=== PATIENT | female | born 1950 | race Caucasian/White ===

== ENCOUNTER 2019-03-19 19:17 | Observation (INO) | payer BC ==
[~2019-03-19] VITALS: Ht 157.5 cm; Wt 65.6 kg
[~2019-03-19 19:17] MED LIST: ACET-93 PO; CHLO4TAB36 PO; EZET10TA5 PO; LISI-552 PO; MG T1TAB2 PO; MULT1TAB69 PO
[2019-03-19] MEDS ORDERED: fentaNYL INJECTION 100 MCG/2 ML AMP ONE (19:26)
[2019-03-19] MEDS ORDERED: NS IV 1000 ML 1,000 ML ONE (19:26)
[2019-03-19] MEDS ORDERED: ONDANSETRON 4 MG/2 ML (SDV) Z0FRAN ONE (19:26)
--- NOTE | 2019-03-19 19:34 | ED Abdominal Pain ---
General Chief Complaint: Abdominal/GI Problems Stated Complaint: ABD PAIN Nursing Triage Note: PT TO ED PER W/C W/ C/O UPPER ABD PAIN ONSET 0830 THIS AM. REPORTS HAD TO "FORCE" A BM DENIES IMPROVEMENT. DENIES PASSING GAS TODAY. NO OTHER C/O VOICED Sepsis Screen: No Definite Risk Source of Information: Patient Exam Limitations: No Limitations History of Present Illness Date Seen by Provider: Mar 19, 2019 Time Seen by Provider: 19:32 Initial Comments To ER by private vehicle from home with reports of right upper abdominal pain that began this morning at about 8:30 while she was outside checking her animals. This is a crampy pain, she thought she needed to have diarrhea after this began. She forced a bowel movement but has not since passed any gas or had anymore bowel movements. She has had nausea but no vomiting, her only abdominal surgical history is a partial hysterectomy. She did have recent angioplasty to the left lower extremity at [facility] about one week ago. She reports that her left leg is feeling much better overall Timing/Duration: 1-2 Days Severity/Quality: Moderate, Cramping Location: RUQ, Epigastric Radiation: No Radiation Activities at Onset: None Associated Symptoms: Nausea/Vomiting (yes at this time) Allergies and Home Medications Allergies Coded Allergies: aspirin (Unverified Allergy, Unknown, 03/19/19) ciprofloxacin (Unverified Allergy, Unknown, 03/19/19) sulfamethoxazole (Verified Allergy, Unknown, 03/19/19) trimethoprim (Verified Allergy, Unknown, 03/19/19) Home Medications Acetaminophen 500 Mg Tablet, 1,000 MG PO DAILY PRN for PAIN, (Reported) Al Hydrox/mg Trisilicate 1 Tab.chew Tab.chew, 1 TAB.CHEW PO DAILY PRN for INDIGESTION, (Reported) Chlorpheniramine Maleate 4 Mg Tablet, 4 MG PO DAILY PRN for ALLERGIES, (Reported) Ezetimibe 10 Mg Tablet, 10 MG PO HS, (Reported) Lisinopril 20 Mg Tablet, 20 MG PO HS, (Reported) Multivitamin 1 Each Tablet, 1 TAB PO DAILY, (Reported) Patient Home Medication List Home Medication List Reviewed: Yes Review of Systems Review of Systems Constitutional: see HPI EENTM: No Symptoms Reported Respiratory: No Symptoms Reported Cardiovascular: No Symptoms Reported Gastrointestinal: See HPI, Abdominal Pain, Nausea Genitourinary: No Symptoms Reported Musculoskeletal: no symptoms reported Skin: no symptoms reported Psychiatric/Neurological: No Symptoms Reported Endocrine: No Symptoms Reported Hematologic/Lymphatic: No Symptoms Reported Past Dvpxopt-Gygvxk-Fyfvoe Hx Patient Social History Alcohol Use: Denies Use Recreational Drug Use: No Smoking Status: Never a Smoker Recent Foreign Travel: No Contact w/Someone Who Travel: No Recent Infectious Disease Expo: No Recent Hopitalizations: Yes ([facility] AT [facility] IN ,[place]) Past Medical History Surgeries: Yes Hysterectomy Respiratory: Yes (ASTHMA A CHILD) Asthma Cardiac: Yes Neurological: No Genitourinary: No Gastrointestinal: Yes Gastroesophageal Reflux Musculoskeletal: No Endocrine: No HEENT: No Cancer: No Psychosocial: No Integumentary: No Physical Exam Vital Signs Vital Signs - First Documented 03/19/19 19:22 Temp 37.9 Pulse 82 Resp 18 B/P (MAP) 163/78 (106) Pulse Ox 97 O2 Delivery Room Air Capillary Refill : Less Than 3 Seconds Height/Weight/BMI Height: 5'2.00" Weight: 140lbs. 0.0oz. [id number]; 26.00 BMI Method: General Appearance: WD/WN, no apparent distress Respiratory: no respiratory distress, no accessory muscle use Cardiovascular: regular rate, rhythm, no murmur Gastrointestinal: normal bowel sounds, soft, tenderness Extremities: normal range of motion, non-tender Neurologic/Psychiatric: alert, normal mood/affect, oriented x 3 Skin: normal color, warm/dry Progress/Results/Core Measures Results/Orders Lab Results Laboratory Tests Test 03/19/19 19:26 03/19/19 20:30 Range/Units White Blood Count 8.2 4.3-11.0 10^3/uL Red Blood Count 4.49 4.35-5.85 10^6/uL Hemoglobin 13.6 11.5-16.0 G/DL Hematocrit 41 35-52 % Mean Corpuscular Volume 91 80-99 FL Mean Corpuscular Hemoglobin 30 25-34 PG Mean Corpuscular Hemoglobin Concent 33 32-36 G/DL Red Cell Distribution Width 12.2 10.0-14.5 % Platelet Count 258 130-400 10^3/uL Mean Platelet Volume 10.2 7.4-10.4 FL Neutrophils (%) (Auto) 70 42-75 % Lymphocytes (%) (Auto) 19 12-44 % Monocytes (%) (Auto) 7 0-12 % Eosinophils (%) (Auto) 5 0-10 % Basophils (%) (Auto) 0 0-10 % Neutrophils # (Auto) 5.7 1.8-7.8 X 10^3 Lymphocytes # (Auto) 1.5 1.0-4.0 X 10^3 Monocytes # (Auto) 0.5 0.0-1.0 X 10^3 Eosinophils # (Auto) 0.4 H 0.0-0.3 10^3/uL Basophils # (Auto) 0.0 0.0-0.1 10^3/uL Sodium Level 142 135-145 MMOL/L Potassium Level 3.9 3.6-5.0 MMOL/L Chloride Level 104 98-107 MMOL/L Carbon Dioxide Level 28 21-32 MMOL/L Anion Gap 10 5-14 MMOL/L Blood Urea Nitrogen 11 7-18 MG/DL Creatinine 0.81 0.60-1.30 MG/DL Estimat Glomerular Filtration Rate > 60 BUN/Creatinine Ratio 14 Glucose Level 109 H 70-105 MG/DL Calcium Level 9.9 8.5-10.1 MG/DL Corrected Calcium 9.5 8.5-10.1 MG/DL Total Bilirubin 0.4 0.1-1.0 MG/DL Aspartate Amino Transf (AST/SGOT) 16 5-34 U/L Alanine Aminotransferase (ALT/SGPT) 14 0-55 U/L Alkaline Phosphatase 90 40-136 U/L Total Protein 7.5 6.4-8.2 GM/DL Albumin 4.5 3.2-4.5 GM/DL Lipase 34 8-78 U/L Urine Color YELLOW Urine Clarity CLEAR Urine pH 7 5-9 Urine Specific [place] 1.010 L 1.016-1.022 Urine Protein NEGATIVE NEGATIVE Urine Glucose (UA) NEGATIVE NEGATIVE Urine Ketones NEGATIVE NEGATIVE Urine Nitrite NEGATIVE NEGATIVE Urine Bilirubin NEGATIVE NEGATIVE Urine Urobilinogen NORMAL NORMAL MG/DL Urine Leukocyte Esterase NEGATIVE NEGATIVE Urine RBC (Auto) NEGATIVE NEGATIVE Urine RBC RARE /HPF Urine WBC 0-2 /HPF Urine Squamous Epithelial Cells RARE /HPF Urine Crystals NONE /LPF Urine Bacteria NEGATIVE /HPF Urine Casts NONE /LPF Urine Mucus NEGATIVE /LPF Urine Culture Indicated NO My Orders Orders - TONYA BA APRN Fentanyl Injection (Sublimaze Injection (03/19/19 19:26) Ondansetron Injection (Zofran Injectio (03/19/19 19:26) Ns Iv 1000 Ml (Sodium Chloride 0.9%) (03/19/19 19:26) Cbc With Automated Diff (03/19/19 19:31) Comprehensive Metabolic Panel (03/19/19 19:31) Lipase (03/19/19 19:31) Ua Culture If Indicated (03/19/19 19:31) Ed Iv/Invasive Line Start (03/19/19 19:31) Ct Abd/Pelv W (Appendicitis) (03/19/19 19:31) Ondansetron Injection (Zofran Injectio (03/19/19 19:45) Fentanyl Injection (Sublimaze Injection (03/19/19 19:45) Promethazine Injection (Phenergan Injec (03/19/19 20:15) Iohexol Injection (Omnipaque 350 Mg/Ml 1 (03/19/19 20:15) Received Contrast (Hold Metformin- Contr (03/19/19 20:15) Sodium Chloride Flush (Catheter Flush Sy (03/19/19 20:15) Ns (Ivpb) (Sodium Chloride 0.9% Ivpb Bag (03/19/19 20:15) Lactic Acid Analyzer (03/19/19 20:56) Medications Given in ED Current Medications Medications Dose Ordered Sig/Nando Route Start Time Stop Time Status Last Admin Dose Admin Fentanyl Citrate 50 mcg ONCE ONCE IVP 03/19/19 19:45 03/19/19 19:46 DC 03/19/19 19:34 50 MCG Iohexol 100 ml ONCE ONCE IV 03/19/19 20:15 03/19/19 20:16 DC 03/19/19 20:24 83 ML Ondansetron HCl 8 mg ONCE ONCE IVP 03/19/19 19:45 03/19/19 19:46 DC 03/19/19 19:33 8 MG Promethazine HCl 12.5 mg ONCE ONCE IVP 03/19/19 20:15 03/19/19 20:16 DC 03/19/19 20:11 12.5 MG Sodium Chloride 10 ml NEEDED PRN IV 03/19/19 20:15 03/19/19 20:24 10 ML Sodium Chloride 100 ml ONCE ONCE IV 03/19/19 20:15 03/19/19 20:16 DC 03/19/19 20:24 80 ML [facility] 03/19/19 19:26 03/19/19 19:28 DC 03/19/19 19:33 1,000 MLS/HR Vital Signs/I&O 03/19/19 19:22 Temp 37.9 Pulse 82 Resp 18 B/P (MAP) 163/78 (106) Pulse Ox 97 O2 Delivery Room Air Blood Pressure Mean: 106 Departure Communication (Admissions) Time/Spoke to Admitting Phy: 21:[address] Ramos, agrees with observation, patient and are agreeable with this. Then spoke with Dr. Garcia who also agrees. At this time, 2101 she is completely pain free and nausea free, however given her vascular pathology possibility of mesenteric ischemia exists and warrants observation though it is unlikely given the complete resolution of pain with one dose of fentanyl. Impression Primary Impression: Ileitis Disposition: ADMITTED INPATIENT Condition: Stable Admissions Decision to Admit Reason: Admit from ER (General) Decision to Admit/Date: Mar 19, 2019 Time/Decision to Admit Time: 21:00 Departure-Patient Inst. Referrals: NO,LOCAL PHYSICIAN (PCP/Family) Primary Care Physician TONYA BA APRN Mar 19, 2019 19:34
[2019-03-19 19:38] LABS: BASOPHILS % (AUTO) 0 % (0-10); EOSINOPHILS # (AUTO) 0.4 10^3/uL (0.0-0.3); EOSINOPHILS % (AUTO) 5 % (0-10); HEMATOCRIT 41 % (35-52); HEMOGLOBIN 13.6 G/DL (11.5-16.0); LYMPHOCYTES # (AUTO) 1.5 X 10^3 (1.0-4.0); LYMPHOCYTES % (AUTO) 19 % (12-44); MEAN CORPUSCULAR HEMOGLOBIN 30 PG (25-34); MEAN CORPUSCULAR HGB CONC 33 G/DL (32-36); MEAN CORPUSCULAR VOLUME 91 FL (80-99); MEAN PLATELET VOLUME 10.2 FL (7.4-10.4); MONOCYTES # (AUTO) 0.5 X 10^3 (0.0-1.0); MONOCYTES % (AUTO) 7 % (0-12); NEUTROPHILS # (AUTO) 5.7 X 10^3 (1.8-7.8); NEUTROPHILS % (AUTO) 70 % (42-75); PLATELET COUNT 258 10^3/uL (130-400); RED CELL DISTRIBUTION WIDTH 12.2 % (10.0-14.5); WHITE BLOOD COUNT 8.2 10^3/uL (4.3-11.0)
[2019-03-19] MEDS ORDERED: fentaNYL INJECTION 100 MCG/2 ML AMP IVP ONE (19:45)
[2019-03-19] MEDS ORDERED: ONDANSETRON 4 MG/2 ML (SDV) Z0FRAN IVP ONE (19:45)
[2019-03-19 20:06] LABS: ALANINE AMINOTRANSFERASE 14 U/L (0-55); ALBUMIN 4.5 GM/DL (3.2-4.5); ALKALINE PHOSPHATASE 90 U/L (40-136); BILIRUBIN,TOTAL 0.4 MG/DL (0.1-1.0); BUN/CREATININE RATIO 14; CALCIUM 9.9 MG/DL (8.5-10.1); CARBON DIOXIDE 28 MMOL/L (21-32); CREATININE SERUM 0.81 MG/DL (0.60-1.30); GFR ESTIMATED > 60; GLUCOSE 109 MG/DL (70-105); LIPASE 34 U/L (8-78); TOTAL PROTEIN 7.5 GM/DL (6.4-8.2)
[2019-03-19] MEDS ORDERED: PROMETHAZINE INJ 25 MG/ML (PHENERGAN) AMP IVP ONE (20:15)
[2019-03-19] MEDS ORDERED: IOHEXOL 350 MG/ML 100 ML (OMNIPAQUE 350) VIAL IV ONE (20:15)
[2019-03-19] MEDS ORDERED: CATHETER FLUSH 10 ML SYR IV PRN (20:15)
[2019-03-19] MEDS ORDERED: NS 100 ML (IVPB) BAG IV ONE (20:15)
[2019-03-19] MEDS ORDERED: HOLD METFORMIN - RECEIVED CONTRAST 20 ML VIAL IV SCH (20:15)
[2019-03-19 20:38] LABS: BILIRUBIN,URINE NEGATIVE (NEGATIVE); CLARITY,URINE CLEAR; COLOR,URINE YELLOW; GLUCOSE, URINE (UA) NEGATIVE (NEGATIVE); KETONES,URINE NEGATIVE (NEGATIVE); LEUKOCYTE ESTERASE ,URINE NEGATIVE (NEGATIVE); NITRITE,URINE NEGATIVE (NEGATIVE); PH,URINE 7 (5-9); PROTEIN,URINE NEGATIVE (NEGATIVE); UROBILINOGEN,URINE NORMAL (NORMAL)
--- NOTE | 2019-03-19 20:43 | Diagnostic Imaging Report ---
PROCEDURE: CT abdomen and pelvis with contrast, rule out appendicitis. TECHNIQUE: Multiple contiguous axial images were obtained through the abdomen and pelvis after the administration of intravenous contrast. INDICATION: Right lower quadrant pain. COMPARISON: CT abdomen and pelvis of 05/15/2009 FINDINGS: Lower chest: The lung bases are clear. No pericardial or pleural effusion. Peritoneum: No free intraperitoneal air or loculated fluid collection. Small amount of free pelvic fluid is present. Liver and biliary system: The liver is normal. The gallbladder is normal. No biliary duct dilation. Spleen and Pancreas: Spleen is normal. The pancreas enhances normally without mass lesion or peripancreatic inflammatory changes. Adrenals: Normal. tract: The kidneys enhance normally without suspicious mass or obstruction. Urinary bladder is distended without wall thickening. No distal ureteral stone. Hysterectomy. Right adnexal cyst measures 2.3 x 1.9 cm. GI tract: Stomach is decompressed. In the right lower quadrant there is a contiguous segment of small bowel measuring approximately 15 cm in length and has circumferential wall thickening and hyperenhancement of the mucosa. Additionally, there is stranding in the vasa recta, all features indicative of acute enteritis. No pericolonic inflammatory changes. Normal appendix. Vasculature and Lymph nodes: Normal caliber aorta has moderate atherosclerotic plaquing present. No abdominal or pelvic lymphadenopathy. Musculoskeletal: No concerning osseous lesion. Chronic bilateral pars defects. IMPRESSION: 1. Acute enteritis involving the right lower quadrant loop of ileum is most likely due to an infectious process. No obstruction. 2. Normal appendix. 3. Small volume of pelvic ascites is likely secondary to enteritis. Dictated by: Dictated on workstation # [id number]
[2019-03-19 20:46] LABS: BACTERIA,URINE NEGATIVE /HPF; RBC,URINE RARE /HPF; SQUAMOUS EPITHELIAL CELL,UR RARE /HPF; WBC,URINE 0-2 /HPF
[2019-03-19 20:47] LABS: CHLORIDE 104 MMOL/L (98-107); POTASSIUM 3.9 MMOL/L (3.6-5.0); SODIUM 142 MMOL/L (135-145)
--- NOTE | 2019-03-19 21:32 | Consultation - Surgery ---
History of Present Illness History of Present Illness Patient Consulted On(leyla/time) 03/19/19 21:24 Time Seen by Provider: 21:01 History of Present Illness Surgery asked to consult regarding enteritis and RLQ pain. HPI per ED: To ER by private vehicle from home with reports of right upper abdominal pain that began this morning at about 8:30 while she was outside checking her animals. This is a crampy pain, she thought she needed to have diarrhea after this began. She forced a bowel movement but has not since passed any gas or had anymore bowel movements. She has had nausea but no vomiting, her only abdominal surgical history is a partial hysterectomy. She did have recent angioplasty to the left lower extremity at [facility] about one week ago. She reports that her left leg is feeling much better overall Timing/Duration: 1-2 Days Severity/Quality: Moderate, Cramping Location: RUQ, Epigastric Radiation: No Radiation Activities at Onset: None Associated Symptoms: Nausea/Vomiting (yes at this time) When I spoke to pt she stated she has never had pain like this before "nothing this bad, that has lasted this long". She described a sharp stabbing pain that comes and goes; at its worst it was an 8. Pain is gone now because she got Fentanyl. Pt denies any recent illness or anyone in her family with similar symptoms and nothing she has eaten differently. Pain got worse at 2pm and thats when she decided to go to ER. Allergies and Home Medications Allergies Coded Allergies: aspirin (Unverified Allergy, Unknown, 03/19/19) ciprofloxacin (Unverified Allergy, Unknown, 03/19/19) sulfamethoxazole (Verified Allergy, Unknown, 03/19/19) trimethoprim (Verified Allergy, Unknown, 03/19/19) Home Medications Acetaminophen 500 Mg Tablet, 1,000 MG PO DAILY PRN for PAIN, (Reported) Al Hydrox/mg Trisilicate 1 Tab.chew Tab.chew, 1 TAB.CHEW PO DAILY PRN for INDIGESTION, (Reported) Chlorpheniramine Maleate 4 Mg Tablet, 4 MG PO DAILY PRN for ALLERGIES, (Reported) Ezetimibe 10 Mg Tablet, 10 MG PO HS, (Reported) Lisinopril 20 Mg Tablet, 20 MG PO HS, (Reported) Multivitamin 1 Each Tablet, 1 TAB PO DAILY, (Reported) Patient Home Medication List Home Medication List Reviewed: Yes Past Ngngxwp-Cjhljy-Gscqzj Hx Patient Social History Alcohol Use: Denies Use Recreational Drug Use: No Smoking Status: Never a Smoker Recent Foreign Travel: No Contact w/Someone Who Travel: No Recent Infectious Disease Expo: No Recent Hopitalizations: Yes ([facility] AT [facility] [place] ,[place]) Surgeries History of Surgeries: Yes Surgeries: Hysterectomy, Vascular Surgery (stent placement in legs) Respiratory History of Respiratory Disorde: Yes (ASTHMA A CHILD) Respiratory Disorders: Asthma Cardiovascular History of Cardiac Disorders: Yes Neurological History of Neurological Disord: No Genitourinary History of Genitourinary Disor: No Gastrointestinal History of Gastrointestinal Di: Yes Gastrointestinal Disorders: Gastroesophageal Reflux Musculoskeletal History of Musculoskeletal Dis: No Endocrine History of Endocrine Disorders: No HEENT History of HEENT Disorders: No Cancer History of Cancer: No Psychosocial History of Psychiatric Problem: No Integumentary History of Skin or Integumenta: No Family Medical History Significant Family History: CAD Under 55 Years Old (Brother at 50), CAD Over 55 Years Old, Diabetes (brother), Hypertension (mother, father and brother) Review of Systems-General Constitutional: No chills, No diaphoresis; malaise, weakness EENTM: No blurred vision, No double vision, No mouth pain, No mouth swelling, No epistaxis Respiratory: No cough, No dyspnea on exertion, No hemoptysis, No short of breath Cardiovascular: No chest pain, No edema, No palpitations Gastrointestinal: abdominal pain (RLQ); No diarrhea, No heartburn, No jaundice Genitourinary: No dysuria, No frequency, No hematuria Musculoskeletal: No joint pain, No joint swelling, No muscle stiffness, No muscle cramps Skin: No change in color, No change in hair/nails Psychiatric/Neurological: Denies Anxiety, Denies Depressed, Denies Seizure, Denies Tingling Other pt denies any hx of abnormal bleeding or bruising. Physical Exam-General Problems Physical Exam Vital Signs Vital Signs - First Documented 03/19/19 19:22 Temp 37.9 Pulse 82 Resp 18 B/P (MAP) 163/78 (106) Pulse Ox 97 O2 Delivery Room Air Capillary Refill : Less Than 3 Seconds General Appearance: WD/WN, mild distress Eyes: Bilateral Eye PERRL, Bilateral Eye EOMI HEENT: pharynx normal; No scleral icterus (R), No scleral icterus (L) Neck: non-tender, full range of motion, supple, normal inspection Respiratory: chest non-tender, lungs clear, normal breath sounds, no respiratory distress, no accessory muscle use Cardiovascular: regular rate, rhythm, no edema, no murmur Peripheral Pulses: 3+ Dorsalis Pedis (R), 3+ Left Dors-Pedis (L), 3+ Radial Pulses (R), 3+ Radial Pulses (L) Gastrointestinal: normal bowel sounds, soft, no organomegaly; No distended; guarding (involuntary), tenderness (RLQ); No hernia Rectal: deferred Back: no CVA tenderness, no vertebral tenderness Extremities: normal range of motion, no pedal edema, no calf tenderness, normal capillary refill Skin: normal color, warm/dry Lymphatic: no adenopathy (neck, axilla or groin) Data Review Labs Laboratory Tests 03/19/19 19:26: White Blood Count 8.2, Red Blood Count 4.49, Hemoglobin 13.6, Hematocrit 41, Mean Corpuscular Volume 91, Mean Corpuscular Hemoglobin 30, Mean Corpuscular Hemoglobin Concent 33, Red Cell Distribution Width 12.2, Platelet Count 258, Mean Platelet Volume 10.2, Neutrophils (%) (Auto) 70, Lymphocytes (%) (Auto) 19, Monocytes (%) (Auto) 7, Eosinophils (%) (Auto) 5, Basophils (%) (Auto) 0, Neutrophils # (Auto) 5.7, Lymphocytes # (Auto) 1.5, Monocytes # (Auto) 0.5, Eosinophils # (Auto) 0.4H, Basophils # (Auto) 0.0, Sodium Level 142, Potassium Level 3.9, Chloride Level 104, Carbon Dioxide Level 28, Anion Gap 10, Blood Urea Nitrogen 11, Creatinine 0.81, Estimat Glomerular Filtration Rate > 60, BUN/Creatinine Ratio 14, Glucose Level 109H, Calcium Level 9.9, Corrected Calcium 9.5, Total Bilirubin 0.4, Aspartate Amino Transf (AST/SGOT) 16, Alanine Aminotransferase (ALT/SGPT) 14, Alkaline Phosphatase 90, Total Protein 7.5, Albumin 4.5, Lipase 34 03/19/19 20:30: Urine Color YELLOW, Urine Clarity CLEAR, Urine pH 7, Urine Specific [place] 1.010L, Urine Protein NEGATIVE, Urine Glucose (UA) NEGATIVE, Urine Ketones NEGATIVE, Urine Nitrite NEGATIVE, Urine Bilirubin NEGATIVE, Urine Urobilinogen NORMAL, Urine Leukocyte Esterase NEGATIVE, Urine RBC (Auto) NEGATIVE, Urine RBC RARE, Urine WBC 0-2, Urine Squamous Epithelial Cells RARE, Urine Crystals NONE, Urine Bacteria NEGATIVE, Urine Casts NONE, Urine Mucus NEGATIVE, Urine Culture Indicated NO 03/19/19 21:07: Assessment/Plan Assessment/Plan Assessment/Plan RLQ pain Enteritis Pt has abdominal pain that is only better with pain meds and does not really seem to be getting better, WBC is normal but her CT shows dilated/thickened sma ll bowel in the RLQ and fluid in the pelvis. She is being admitted to recheck labs in am and recheck abdominal exam. She will get IV fluids and pain control. Most likely this is viral, but I am concerned it could be vascular and told pt if it is worse tomorrow she may need to have a diagnostic laparoscopy. She was agreeable to this. RAZA RIVERA DO Mar 19, 2019 21:32
--- NOTE | 2019-03-19 21:50 | NUR ---
report given to chloe mcrae
--- NOTE | 2019-03-19 22:10 | NUR ---
SANDI GLOVER admitted to room 422-1, with an admitting diagnosis of ACUTE ILEITIS , on 03/19/19 from ED via , accompanied by STAFF. SANDI GLOVER introduced to surroundings, call light, bed controls, phone, TV, temperature control, lights, meal times, smoking policy, visitor policy, side rail policy, bathrooms and showers. Patient Rights given to patient in the handbook.SANDI GLOVER verbalizes understanding that [facility] is not responsible for the loss or damage to any personal effects or valuables that are kept in the patients posession during their hospitalization.
[2019-03-19] MEDS ORDERED: LACTATED RINGERS 1,000 ML IV ONE (22:15)
[2019-03-19 22:17] VITALS: BP 116/65
[2019-03-19] MEDS: LACTATED RINGERS 1,000 ML IV SCH (22:24)
[2019-03-19] MEDS ORDERED: PROMETHAZINE INJ 25 MG/ML (PHENERGAN) AMP IV PRN (22:30)
[2019-03-19] MEDS ORDERED: fentaNYL INJECTION 100 MCG/2 ML AMP IV PRN (22:30)
[2019-03-20] VITALS (7 sets, daily range): BP systolic 104–148; BP diastolic 54–71
[2019-03-20 05:16] LABS: BASOPHILS % (AUTO) 1 % (0-10); EOSINOPHILS # (AUTO) 0.4 10^3/uL (0.0-0.3); EOSINOPHILS % (AUTO) 6 % (0-10); HEMATOCRIT 36 % (35-52); HEMOGLOBIN 11.6 G/DL (11.5-16.0); LYMPHOCYTES # (AUTO) 1.4 X 10^3 (1.0-4.0); LYMPHOCYTES % (AUTO) 24 % (12-44); MEAN CORPUSCULAR HEMOGLOBIN 30 PG (25-34); MEAN CORPUSCULAR HGB CONC 33 G/DL (32-36); MEAN CORPUSCULAR VOLUME 92 FL (80-99); MEAN PLATELET VOLUME 10.5 FL (7.4-10.4); MONOCYTES # (AUTO) 0.4 X 10^3 (0.0-1.0); MONOCYTES % (AUTO) 8 % (0-12); NEUTROPHILS # (AUTO) 3.6 X 10^3 (1.8-7.8); NEUTROPHILS % (AUTO) 62 % (42-75); PLATELET COUNT 200 10^3/uL (130-400); RED CELL DISTRIBUTION WIDTH 12.3 % (10.0-14.5); WHITE BLOOD COUNT 5.8 10^3/uL (4.3-11.0)
[2019-03-20 05:35] LABS: ALANINE AMINOTRANSFERASE 11 U/L (0-55); ALBUMIN 3.5 GM/DL (3.2-4.5); ALKALINE PHOSPHATASE 74 U/L (40-136); BILIRUBIN,TOTAL 0.4 MG/DL (0.1-1.0); BUN/CREATININE RATIO 14; CALCIUM 8.5 MG/DL (8.5-10.1); CARBON DIOXIDE 25 MMOL/L (21-32); CHLORIDE 109 MMOL/L (98-107); CREATININE SERUM 0.71 MG/DL (0.60-1.30); GFR ESTIMATED > 60; GLUCOSE 88 MG/DL (70-105); POTASSIUM 3.7 MMOL/L (3.6-5.0); SODIUM 141 MMOL/L (135-145); TOTAL PROTEIN 5.7 GM/DL (6.4-8.2)
[2019-03-20] MEDS: LACTATED RINGERS 1,000 ML IV SCH ×3 (06:14→22:50)
[2019-03-20] MEDS: CLOPIDOGREL 75 MG (PLAVIX) TABLET PO SCH (08:01)
--- NOTE | 2019-03-20 10:32 | Progress Note - Surgery ---
FRANCISCO GLEASON,MED STUDENT 03/20/19 1032: Subjective Date Seen by a Provider: Mar 20, 2019 Time Seen by a Provider: 10:15 Subjective/Events-last exam Mrs. Murry presentes to the ED yesterday with severe RLQ pain. The pain became severe yesterday morning and continued to worsen throughout the day. Prior to yesterday she has had soreness in her RLQ for "months". She states today the pain has improved today and she now characterizes it as a "twinge". She has had 2 bouts of pain overnight that she rates a 2 out of 10. she denies any nausea/vomiting. She states diarrhea began last night and she has had 5 bowel movements. She denies any black or bright red blood on her stools. Review of Systems General: No Chills, No Night Sweats, No Fatigue Pulmonary: No Dyspnea, No Cough Cardiovascular: No: Chest Pain Gastrointestinal: Abdominal Pain, Diarrhea; No: Nausea, Vomiting, Constipation, Melena, Hematochezia Genitourinary: No Incontinence, No Retention Neurological: No: Weakness, Confusion Focused Exam Lactate Level 03/19/19 21:07: Lactic Acid Level 0.41L Objective Exam Vital Signs Date Time Temp Pulse Resp B/P (MAP) Pulse Ox O2 Delivery O2 Flow Rate FiO2 03/20/19 08:25 37.0 63 20 114/66 (82) 98 Room Air 03/20/19 08:00 Room Air 03/20/19 04:00 36.6 60 16 117/57 (77) 95 Room Air 03/20/19 00:00 37.0 68 16 115/54 (74) 95 Room Air 03/19/19 22:51 Room Air 03/19/19 22:17 36.5 70 20 116/65 93 Room Air 03/19/19 22:09 68 18 121/63 97 03/19/19 19:22 37.9 82 18 163/78 (106) 97 Room Air I & O 03/20/19 07:00 Intake Total 2050 ml Balance 2050 ml Capillary Refill : Less Than 3 Seconds General Appearance: No Apparent Distress, WD/WN HEENT: PERRL/EOMI Neck: Full Range of Motion, Supple Respiratory: Chest Non Tender, Lungs Clear, Normal Breath Sounds Cardiovascular: Regular Rate, Rhythm, No Murmur Peripheral Pulses: 2+ Radial Pulses (R), 2+ Radial Pulses (L) Gastrointestinal: normal bowel sounds, soft; No distended, No rebound; tenderness (RLQ); No hernia Extremity: No Calf Tenderness, No Pedal Edema Neurologic/Psychiatric: Alert, Oriented x3, Normal Mood/Affect Skin: Normal Color, Warm/Dry Results Lab Laboratory Tests 03/19/19 19:26: White Blood Count 8.2, Red Blood Count 4.49, Hemoglobin 13.6, Hematocrit 41, Mean Corpuscular Volume 91, Mean Corpuscular Hemoglobin 30, Mean Corpuscular Hemoglobin Concent 33, Red Cell Distribution Width 12.2, Platelet Count 258, Mean Platelet Volume 10.2, Neutrophils (%) (Auto) 70, Lymphocytes (%) (Auto) 19, Monocytes (%) (Auto) 7, Eosinophils (%) (Auto) 5, Basophils (%) (Auto) 0, Neutrophils # (Auto) 5.7, Lymphocytes # (Auto) 1.5, Monocytes # (Auto) 0.5, Eosinophils # (Auto) 0.4H, Basophils # (Auto) 0.0, Sodium Level 142, Potassium Level 3.9, Chloride Level 104, Carbon Dioxide Level 28, Anion Gap 10, Blood Urea Nitrogen 11, Creatinine 0.81, Estimat Glomerular Filtration Rate > 60, BUN/Creatinine Ratio 14, Glucose Level 109H, Calcium Level 9.9, Corrected Calcium 9.5, Total Bilirubin 0.4, Aspartate Amino Transf (AST/SGOT) 16, Alanine Aminotransferase (ALT/SGPT) 14, Alkaline Phosphatase 90, Total Protein 7.5, Albumin 4.5, Lipase 34 03/19/19 20:30: Urine Color YELLOW, Urine Clarity CLEAR, Urine pH 7, Urine Specific [place] 1.010L, Urine Protein NEGATIVE, Urine Glucose (UA) NEGATIVE, Urine Ketones NEGATIVE, Urine Nitrite NEGATIVE, Urine Bilirubin NEGATIVE, Urine Urobilinogen NORMAL, Urine Leukocyte Esterase NEGATIVE, Urine RBC (Auto) NEGATIVE, Urine RBC RARE, Urine WBC 0-2, Urine Squamous Epithelial Cells RARE, Urine Crystals NONE, Urine Bacteria NEGATIVE, Urine Casts NONE, Urine Mucus NEGATIVE, Urine Culture Indicated NO 03/19/19 21:07: Lactic Acid Level 0.41L 03/20/19 04:40: White Blood Count 5.8, Red Blood Count 3.84L, Hemoglobin 11.6, Hematocrit 36, Mean Corpuscular Volume 92, Mean Corpuscular Hemoglobin 30, Mean Corpuscular Hemoglobin Concent 33, Red Cell Distribution Width 12.3, Platelet Count 200, Mean Platelet Volume 10.5H, Neutrophils (%) (Auto) 62, Lymphocytes (%) (Auto) 24, Monocytes (%) (Auto) 8, Eosinophils (%) (Auto) 6, Basophils (%) (Auto) 1, Neutrophils # (Auto) 3.6, Lymphocytes # (Auto) 1.4, Monocytes # (Auto) 0.4, Eosinophils # (Auto) 0.4H, Basophils # (Auto) 0.0, Sodium Level 141, Potassium Level 3.7, Chloride Level 109H, Carbon Dioxide Level 25, Anion Gap 7, Blood Urea Nitrogen 10, Creatinine 0.71, Estimat Glomerular Filtration Rate > 60, BUN/Creatinine Ratio 14, Glucose Level 88, Calcium Level 8.5, Corrected Calcium 8.9, Total Bilirubin 0.4, Aspartate Amino Transf (AST/SGOT) 13, Alanine Aminotransferase (ALT/SGPT) 11, Alkaline Phosphatase 74, Total Protein 5.7L, Albumin 3.5 Assessment/Plan Assessment/Plan Assessment/Plan RLQ Pain Enteritis Patients abdominal pain is better. WBC normal. Continue IVF, antiemetics, and pain control as needed. Clear liquid diet, NPO at midnight. Discussed need for diagnostic laparoscopy, will plan for outpatient to stop plavix prior unless worsening Clinical Quality Measures DVT/VTE Risk/Contraindication: Risk Factor Score Per Nursin RFS Level Per Nursing on Admit: 2=Moderate WILBERT RIVERA DO 03/20/19 1242: Subjective Time Seen by a Provider: 10:15 Subjective/Events-last exam When talking with the pt she states for the past 2 months at least she has had the pain in the right lower quadrant; "at night I feel around on my belly and have felt pain in the same area." Objective Exam Gastrointestinal: guarding (voluntary), tenderness (RLQ -better than yesterday, still has pain in RLQ when LUQ is pushed) Assessment/Plan Assessment/Plan Assessment/Plan Plan to watch her one more day, even though she is doing better; my main concern is her problem being Vascular in nature and with her living so far from the hospital something happening at home. She is ok with staying one more day. Supervisory-Addendum Brief Verification & Attestation Participated in pt care: history, MDM, physical Personally performed: exam, history, MDM Care discussed with: Medical Student Procedures: n/a Verification and Attestation of Medical Student E/M Service A medical student performed and documented this service in my presence. I reviewed and verified all information documented by the medical student and made modifications to such information, when appropriate. I personally performed the physical exam and medical decision making. Wilbert Rivera, Mar 20, 2019,12:42 FRANCISCO GLEASON,MED STUDENT Mar 20, 2019 10:32 WILBERT RIVERA DO Mar 20, 2019 12:42
--- NOTE | 2019-03-20 13:30 | Progress Note - Hospitalist ---
Subjective HPI/CC On Admission Date Seen by Provider: Mar 20, 2019 Time Seen by Provider: 13:27 Focused Exam Lactate Level 03/19/19 21:07: Lactic Acid Level 0.41L Objective Exam Vital Signs Vital Signs Date Time Temp Pulse Resp B/P (MAP) Pulse Ox O2 Delivery O2 Flow Rate FiO2 03/20/19 20:00 37.2 66 20 135/71 (92) 96 Room Air Capillary Refill : Less Than 3 Seconds Results/Procedures Lab Laboratory Tests 03/20/19 04:40 Patient resulted labs reviewed. Clinical Quality Measures DVT/VTE Risk/Contraindication: Risk Factor Score Per Nursin RFS Level Per Nursing on Admit: 2=Moderate PETTY COLVIN MD Mar 20, 2019 13:30
--- NOTE | 2019-03-20 14:31 | History & Physical-Hospitalist ---
History of Present Illness HPI/Chief Complaint Pt is a 68yoCF with a PMH of HLD and PAD who recently underwent femoral artery stenting who presented to the ER with CC of right sided abdominal pain. She states it started yesterday morning around 9am and worsened throughout the day to the point of doubling her over in pain. SHe tried a heating pad without any relief. When he got off work she decided to seek evaluation in the ER. She states it has improved this morning but still has as soreness. The soreness she describes as been there for months. Date Seen 03/20/19 Time Seen by a Provider: 13:00 Attending Physician Petty Malin MD PCP No,Local Physician Referring Physician Date of Admission Mar 19, 2019 at 21:32 Home Medications & Allergies Home Medications Reviewed patient Home Medication Reconciliation performed by pharmacy medication reconciliations water restoration technician and/or nursing. Patients Allergies have been reviewed. Allergies Allergies Coded Allergies aspirin (Unverified Allergy, Unknown, 03/19/19) ciprofloxacin (Unverified Allergy, Unknown, 03/19/19) sulfamethoxazole (Verified Allergy, Unknown, 03/19/19) trimethoprim (Verified Allergy, Unknown, 03/19/19) Past Nofsrpa-Qgwxyq-Hgafko Hx Past Med/Social Hx: Reviewed Nursing Past Med/Soc Hx Patient Social History Marrital Status: Alcohol Use: Denies Use Recreational Drug Use: No Smoking Status: Never a Smoker Recent Foreign Travel: No Contact w/other who traveled: No Recent Hopitalizations: Yes ([facility] IN [place], [place]) Recent Infectious Disease Expo: No Past Medical History Surgeries: Hysterectomy, Vascular Surgery (stent placement in legs) Cardiac: High Cholesterol, Peripheral Vascular Gastrointestinal: Gastroesophageal Reflux Family History Reviewed Nursing Family Hx CAD Under 55 Years Old (Brother at 50), CAD Over 55 Years Old, Diabetes (brother), Hypertension (mother, father and brother) Review of Systems Constitutional: No chills, No fever EENTM: No blurred vision, No double vision, No nose congestion, No throat pain Respiratory: No cough, No dyspnea on exertion, No short of breath Cardiovascular: No chest pain, No edema, No palpitations Gastrointestinal: see HPI, abdominal pain; No constipation, No diarrhea, No nausea, No vomiting Genitourinary: No dysuria, No frequency Musculoskeletal: No joint pain, No muscle pain Skin: No lesions, No rash Psychiatric/Neurological: Denies Headache, Denies Numbness, Denies Tingling Physical Exam Physical Exam Vital Signs Vital Signs - First Documented 03/19/19 19:22 Temp 37.9 Pulse 82 Resp 18 B/P (MAP) 163/78 (106) Pulse Ox 97 O2 Delivery Room Air Capillary Refill : Less Than 3 Seconds Height, Weight, BMI Height: 5'2.00" Weight: 140lbs. 0.0oz. [id number]; 26.44 BMI Method: General Appearance: No Apparent Distress, WD/WN HEENT: Moist Mucous Membranes; No Scleral Icterus (L), No Scleral Icterus (R) Neck: Normal Inspection, Supple; No JVD Respiratory: Lungs Clear, No Accessory Muscle Use, No Respiratory Distress Cardiovascular: Regular Rate, Rhythm, No Murmur Gastrointestinal: Normal Bowel Sounds, Non Tender, Soft; No Distended, No Guarding, No Mass, No Rebound Extremity: No Calf Tenderness, No Pedal Edema Neurologic/Psychiatric: Alert, Oriented x3, Normal Mood/Affect; No Aphasia, No Facial Droop Skin: Normal Color, Warm/Dry Results Results/Procedures Labs Laboratory Tests 03/19/19 19:26 03/20/19 04:40 Patient resulted labs reviewed. Imaging: Reviewed Imaging Report Assessment/Plan Admission Diagnosis Ileitis Admission Status: Observation Assessment and Plan Ileitis Likely infectious Lactic acid normal Given history of PVD and persistent pain will monitor again overnight to ensure no evidence of ischemia Discussed with Dr Ramos if pain worsens may need diagnostic laparoscopy this admission if not can schedule as an outpatient PAD Continue Plavix Follows with Cardiology at [facility] in [place] Resume Lisinopril if needed Clinical Quality Measures DVT/VTE Risk/Contraindication: Risk Factor Score Per Nursin RFS Level Per Nursing on Admit: 2=Moderate PETTY MALIN MD Mar 20, 2019 14:31
[2019-03-21] MEDS: LACTATED RINGERS 1,000 ML IV SCH ×2 (06:41→17:04)
[2019-03-21 08:00] VITALS: BP 126/60
--- NOTE | 2019-03-21 08:21 | Progress Note - Surgery ---
FRANCISCO GLEASON,MED STUDENT 03/21/19 0821: Subjective Date Seen by a Provider: Mar 21, 2019 Time Seen by a Provider: 07:10 Subjective/Events-last exam Mrs. Murry states she continues to feel better. She states she had small amounts of loose stool yesterday evening that has now stopped. She has had 1 formed stool this morning. She denies any bright red blood in stool or black stool. She denies any abdominal pain at rest, nausea, and vomiting at this time. Review of Systems General: No Chills, No Fatigue Pulmonary: No Dyspnea, No Cough Cardiovascular: No: Chest Pain, Edema Gastrointestinal: Abdominal Pain; No: Nausea, Vomiting, Diarrhea, Constipation Genitourinary: No Dysuria; Frequency; No Incontinence Neurological: No: Weakness, Confusion Focused Exam Lactate Level 03/19/19 21:07: Lactic Acid Level 0.41L Objective Exam Vital Signs Date Time Temp Pulse Resp B/P (MAP) Pulse Ox O2 Delivery O2 Flow Rate FiO2 03/20/19 23:40 36.5 61 16 104/59 (74) 95 Room Air 03/20/19 20:00 37.2 66 20 135/71 (92) 96 Room Air 03/20/19 19:30 Room Air 03/20/19 16:00 37.5 73 20 112/65 (81) 97 Room Air 03/20/19 11:29 36.8 68 20 148/69 (95) 99 Room Air 03/20/19 08:25 37.0 63 20 114/66 (82) 98 Room Air I & O 03/21/19 07:00 Intake Total 5097 ml Balance 5097 ml Capillary Refill : Less Than 3 Seconds General Appearance: No Apparent Distress, WD/WN HEENT: PERRL/EOMI, Moist Mucous Membranes Neck: Normal Inspection, Supple Respiratory: Lungs Clear, Normal Breath Sounds, No Respiratory Distress Cardiovascular: Regular Rate, Rhythm, No Murmur Peripheral Pulses: 2+ Radial Pulses (R), 2+ Radial Pulses (L) Gastrointestinal: normal bowel sounds, soft, guarding (voluntary); No rebound; tenderness (RLQ and pain in RLQ when LUQ/LLQ pushed) Extremity: No Calf Tenderness, No Pedal Edema Neurologic/Psychiatric: Alert, Oriented x3, Normal Mood/Affect Skin: Normal Color, Warm/Dry Assessment/Plan Assessment/Plan Assessment/Plan Enteritis Abdominal pain continues to improve. May advance diet as tolerated. Discussed need for diagnostic laproscopy, will do outpatient and stop plavix prior. Follow-up with Dr. Rivera in the office. Clinical Quality Measures DVT/VTE Risk/Contraindication: Risk Factor Score Per Nursin RFS Level Per Nursing on Admit: 2=Moderate WILBERT RIVERA DO 03/21/19 1419: Subjective Time Seen by a Provider: 14:00 Subjective/Events-last exam Pt seen and examined, states she is feeling much better; but still has minimal twinges of pain in RLQ. Pt is having formed stools. Assessment/Plan Assessment/Plan Assessment/Plan Plan to see pt in clinic, stop Plavix and then schedule Diagnostic Laparoscopy. Supervisory-Addendum Brief Verification & Attestation Participated in pt care: history, MDM, physical Personally performed: exam, history, MDM Care discussed with: Medical Student Procedures: n/a Verification and Attestation of Medical Student E/M Service A medical student performed and documented this service in my presence. I reviewed and verified all information documented by the medical student and made modifications to such information, when appropriate. I personally performed the physical exam and medical decision making. Wilbert Rivera, Mar 21, 2019,14:19 FRANCISCO GLEASON MED STUDENT Mar 21, 2019 08:21 WILBERT RIVERA DO Mar 21, 2019 14:19
[2019-03-21] MEDS ORDERED: LATA2.5D5 OU (09:29)
[2019-03-21] MEDS ORDERED: CLOP75TA28 PO (09:29)
[2019-03-21] MEDS ORDERED: ACYC400T PO (09:29)
[2019-03-21] MEDS ORDERED: NAPR-1033 PO (09:32)
--- NOTE | 2019-03-21 09:32 | NUR ---
SPOKE WITH PT WELL GOING OVER THE EXT MED HISTORY TO COMPLETE THE MED REC. PT WAS ABLE TO TELL ME ALL HER MEDICATION AND HOW SHE USED THEM, THEY ALL MATCHED UP WITH THE EXT MED HISTORY. OTC MEDS: ACETAMINOPHEN 500M TABS Q 8 H PRN NAPROXEN 220M TABS Q 8 H PRN MULTIVITAMIN: 1 DAILY CHLORPHENIRAMINE : 1 DAILY PRN
--- NOTE | 2019-03-21 10:11 | Discharge Instructions ---
Discharge Instructions Reconcile Patient Problems Problems Reviewed?: Yes Patient Instructions Patient Instructions Take medications as prescribed. Follow up with your vascular surgeon in [place]. Return to The Hospital For: worsening abdominal pain, intractable nausea and vomiting, or if you feel like you are getting worse. Activity & Diet Discharge Diet: No Restrictions Activity as Tolerated: Yes JAS HALL MD Mar 21, 2019 10:11
[2019-03-21] MEDS: CLOPIDOGREL 75 MG (PLAVIX) TABLET PO SCH (12:12)
--- NOTE | 2019-03-21 12:16 | Discharge Summary ---
Discharge Summary Hospital Course Hospital Course Date of Admission: Mar 19, 2019 at 21:32 Admission Diagnosis : Viral gastroenteritis Family Physician/Provider: FelyLocal Physician Date of Discharge: 03/21/19 Discharge Diagnosis: Viral gastroenteritis Hospital Course: Raissa Murry is a 68yoF who presented with nausea, vomiting, diarrhea, and abdominal pain and was admitted with viral gastroenteritis. CT Abdomen revealed ileitis. Surgery was consulted and plans to perform a diagnostic laparoscopy as an outpatient. She will follow up with Dr. Ramos. She recently underwent a femoral stent placement at [facility] in [place]. She plans to follow up with her vascular surgeon there. Labs and Pending Lab Test: Home Meds Active Reported Naproxen Sodium 220 Mg Tablet 440 Mg PO Q8H PRN Clopidogrel (Clopidogrel Bisulfate) 75 Mg Tablet 75 Mg PO DAILY Acyclovir 400 Mg Tablet 400 Mg PO TID PRN Latanoprost 2.5 Ml Drops 1 Drop OU HS Chlorpheniramine Maleate 4 Mg Tablet 4 Mg PO DAILY PRN Multivitamins (Multivitamin) 1 Each Tablet 1 Tab PO DAILY Acetaminophen 500 Mg Tablet 1,000 Mg PO Q8H PRN Zetia (Ezetimibe) 10 Mg Tablet 10 Mg PO DAILY Lisinopril 20 Mg Tablet 20 Mg PO DAILY Assessment/Pt Instructions Take medications as prescribed. Follow up with Dr. Ramos. Discharge Planning: <30 minutes discharge planning Discharge Instructions Discharge Diet: No Restrictions Activity as Tolerated: Yes Pneumonia Vaccine Order Indica: Yes Consultations General surgery Discharge Physical Examination Vital Signs Vital Signs Date Time Temp Pulse Resp B/P (MAP) Pulse Ox O2 Delivery O2 Flow Rate FiO2 03/20/19 23:40 36.5 61 16 104/59 (74) 95 Room Air General Appearance: No Apparent Distress, WD/WN Respiratory: Lungs Clear, Normal Breath Sounds, No Respiratory Distress Cardiovascular: Regular Rate, Rhythm, No Edema, No Murmur Gastrointestinal: Normal Bowel Sounds, Soft, Tenderness Extremity: Normal Inspection, No Pedal Edema Skin: Normal Color, Warm/Dry Neurologic/Psychiatric: Alert, Oriented x3, Normal Mood/Affect Allergies: Coded Allergies: aspirin (Unverified Allergy, Unknown, 03/19/19) ciprofloxacin (Unverified Allergy, Unknown, 03/19/19) sulfamethoxazole (Verified Allergy, Unknown, 03/19/19) trimethoprim (Verified Allergy, Unknown, 9/28/19) Discharge Summary Date of Admission Mar 19, 2019 at 21:32 Date of Discharge Discharge Date: Mar 21, 2019 Discharge Time: 09:15 Admission Diagnosis Ileitis Consults/Procedures Consulations General surgery Discharge Diagnosis (1) Viral gastroenteritis Status: Acute (2) Ileitis Status: Acute Clinical Quality Measures DVT/VTE Risk/Contraindication: Risk Factor Score Per Nursin RFS Level Per Nursing on Admit: 2=Moderate JAS HALL MD Mar 21, 2019 12:14
--- NOTE | 2019-03-21 14:21 | Discharge Inst-Surgical ---
Discharge Inst-Surgical Depart Medication/Instructions New, Converted or Re-Newed RX: Other (none needed) Patient Instructions Follow up Appt: Make appointment for 1 week. [phone] Instructions: Use incentive spirometer at home as directed. No Smoking Symptoms to Report: Appetite Changes, Extremity Discoloration, Numbness/Tingling, Swelling Increased, Bleeding Excessive, Eyesight Changes, Pain Increased, Urine Color Change, Constipation(Persistent), Fever over 101 degree F, Pain/Pressure in chest, Urinating Difficulty, Cough Up/Vomit Blood, Heart Beat Irreg/Pounding, Pain/Pressure in jaw, Cramps in feet or legs, Lightheadedness, Pain/Pressure in shoulder, Diarrhea(Persistent), Memory Changes Suddenly, Questions/Concerns, Weight gain consecutive days, Dizziness/Fainting, Nausea/Vomiting, Shortness of Breath, Weight gain over 2 pounds If questions or concerns contact your physician Or seek help at emergency department. Diet Discharge Diet: No Restrictions Diet After 24 Hours: Clear Liquid if Nauseous If Any Problems/Questions/Issu: Contact Your Physician, Go to Emergency Room Skin/Wound Care Infection Signs and Symptoms: Increased Swelling, Temperature Above 101 F RAZA RIVERA DO Mar 21, 2019 14:20
--- NOTE | 2019-03-21 15:00 | NUR ---
Pastoral care visit.
[2019-03-21 16:00] VITALS: BP 148/64
[2019-03-21 17:09] VITALS: BP 148/64
--- NOTE | 2019-03-21 17:45 | NUR ---
SANDI GLOVER demonstrates understanding of discharge instructions and accurately returns instructions upon questioning. Copy of Post-Discharge Instructions given to PT. SANDI GLOVER is able to manage continuing needs after discharge. Patients belongings returned to PT. Patient discharged from 422-1 on 03/21/19 at 1745. SANDI GLOVER left floor via W/C, accompanied by STAFF AND DAUGHTER PER AUTO.
== END 2019-03-21 10:08 | disposition home or self-care (01) ==
LOC: EDUNIT# 19:17 → ER 19:19 → UNDOADMOB 21:32 → 4TH 21:32 → UNDODISOB 03-21 17:45
PROVIDERS: ADMIT Family Medicine; ATTEND Family Medicine
DX: A08.4 Viral intestinal infection, unspecified (principal); K52.9 Noninfective gastroenteritis and colitis, unspecified; K21.9 Gastro-esophageal reflux disease without esophagitis; Z79.02 Long term (current) use of antithrombotics/antiplatelets; Z79.899 Other long term (current) drug therapy; Z88.1 Allergy status to other antibiotic agents; Z88.2 Allergy status to sulfonamides; Z88.8 Allergy status to other drugs, medicaments and biological substances; Z90.710 Acquired absence of both cervix and uterus
CPT/HCPCS: 36415; 74177; 80053; 81000; 83605; 83690; 85025; 96374; 96375; G0378

== ENCOUNTER → 2019-06-09 | Outpatient (CLI) | payer MEDICARE, BC ==
[~2019-06-09] MED LIST changes: +ACYC400T PO; +CLOP75TA28 PO; +LATA2.5D5 OU; +NAPR-1033 PO
--- NOTE | 2019-06-09 16:35 | Diagnostic Imaging Report ---
PROCEDURE: MRI left joint lower extremity without contrast. TECHNIQUE: Multiplanar, multisequence non contrast-enhanced MRI of the left lower extremity was accomplished. INDICATION: Hip pain. FINDINGS: The alignment is normal. There are no marrow signal intensity abnormalities. There is no fracture or dislocation. The evaluation of the labrum is limited due to lack of intra-articular gadolinium; however, appears grossly unremarkable. There is some edema and fluid about the greater trochanter suspect for bursitis. The intrapelvic soft tissue structures are unremarkable. IMPRESSION: Focal edema and fluid about the greater trochanter on the left suspect for greater trochanteric bursitis. No acute fracture or dislocation. Dictated by: Dictated on workstation # [id number]
== END ==
LOC: RAD 14:28
PROVIDERS: ATTEND Nurse Practitioner Family
DX: S79.912A Unspecified injury of left hip, initial encounter (principal); M25.552 Pain in left hip; X58.XXXA Exposure to other specified factors, initial encounter
CPT/HCPCS: 73721

== ENCOUNTER → 2020-12-26 | Outpatient (CLI) | payer MEDICARE, BC ==
[~2020-12-26] VITALS: Ht 157 cm; Wt 68.0 kg
[~2020-12-26] MED LIST changes: -ACYC400T PO; +ACYC400T21 PO; +CATHETER FLUSH 10 ML SYR IV PRN; +EZET10TA17 PO; -EZET10TA5 PO; -LISI-552 PO; +LISI20TA26 PO; +MULT-567 PO; -MULT1TAB69 PO; +REGADENOSON 0.4 MG/5 ML SYR (LEXISCAN) IV ONE
[2020-12-26 12:52] VITALS: BP 160/77
--- NOTE | 2020-12-26 14:11 | Cardiology Stress Test Report ---
Stress Test Report Date of Procedure/Referring: Date of Procedure: Dec 26, 2020 PCP Raffy Powell MD Admitting Physician Javid Stephens MD Indications: HTN Baseline Heart Rate: 65 Baseline Blood Pressure: Blood Pressure Systolic: 160 Blood Pressure Diastolic: 77 Baseline Vitals Vital Signs Date Time Temp Pulse Resp B/P (MAP) Pulse Ox O2 Delivery O2 Flow Rate FiO2 12/26/20 12:52 67 18 160/77 (104) 97 Room Air Baseline EKG: Baseline EKG: NSR Summary After explaining the procedure to the patient, she signed a consent and then brought to the stress nuclear laboratory. Patient received 0.4 mg Lexiscan for stress test, ECG, heart rate and blood pressure were monitored continuously. Resting and stress dose of radio tracer were injected, imaging was acquired and reviewed in short axis, horizontal long axis and vertical long axis views. TID: 1.13 SSS: 0 SDS: 0 EF: 66 1. Patient tolerated Lexiscan well 2. No significant ischemia or infarction on SPECT images 3. Normal left ventricular size, EF 66% RAFFY POWELL MD Dec 26, 2020 14:11
== END ==
LOC: CARD 10:30
PROVIDERS: ATTEND Internal Medicine Cardiovascular Disease
DX: I10 Essential (primary) hypertension (principal); I35.1 Nonrheumatic aortic (valve) insufficiency; I25.10 Atherosclerotic heart disease of native coronary artery without angina pectoris
CPT/HCPCS: 78452; 93017; 93306; A9502

== ENCOUNTER → 2021-02-14 | Outpatient (CLI) | payer MEDICARE, BC ==
[~2021-02-14] MED LIST changes: -CATHETER FLUSH 10 ML SYR IV PRN; -REGADENOSON 0.4 MG/5 ML SYR (LEXISCAN) IV ONE
[2021-02-14 08:52] LABS: ALBUMIN 4.4 GM/DL (3.2-4.5); POTASSIUM 4.2 MMOL/L (3.6-5.0)
[2021-02-14 08:53] LABS: CALCIUM 9.8 MG/DL (8.5-10.1)
[2021-02-14 08:55] LABS: TOTAL PROTEIN 7.2 GM/DL (6.4-8.2)
[2021-02-14 08:56] LABS: BILIRUBIN,TOTAL 0.7 MG/DL (0.1-1.0)
[2021-02-14 08:58] LABS: CREATININE SERUM 0.78 MG/DL (0.60-1.30)
== END ==
LOC: LAB 08:12
PROVIDERS: ATTEND Internal Medicine Cardiovascular Disease
DX: E78.2 Mixed hyperlipidemia (principal)
CPT/HCPCS: 36415; 80053; 80061

== ENCOUNTER 2021-04-12 08:18 | Day surgery (SDC) | payer MEDICARE, BC ==
[~2021-04-12] VITALS: Ht 157.5 cm; Wt 66.8 kg
[2021-04-12] VITALS (10 sets, daily range): BP systolic 107–156; BP diastolic 52–88
[2021-04-12] MEDS ORDERED: LIDOCAINE 1% INJ 20 ML 20 ML VIAL ONE (08:20)
[2021-04-12] MEDS ORDERED: NS IV 1000 ML 1,000 ML ONE (08:20)
[2021-04-12] MEDS ORDERED: HEParin (CATH LAB) 2,000 ML IV ONE (08:20)
[2021-04-12] MEDS ORDERED: NS IV 1000 ML 1,000 ML IV SCH (08:30)
[2021-04-12 08:45] LABS: BILIRUBIN,URINE NEGATIVE (NEGATIVE); CLARITY,URINE CLEAR; COLOR,URINE YELLOW; GLUCOSE, URINE (UA) NEGATIVE (NEGATIVE); KETONES,URINE NEGATIVE (NEGATIVE); LEUKOCYTE ESTERASE ,URINE NEGATIVE (NEGATIVE); NITRITE,URINE NEGATIVE (NEGATIVE); PROTEIN,URINE NEGATIVE (NEGATIVE)
[2021-04-12 08:45] LABS: HEMATOCRIT 46 % (35-52); HEMOGLOBIN 14.6 g/dL (11.5-16.0); MEAN CORPUSCULAR HEMOGLOBIN 30 pg (25-34); MEAN CORPUSCULAR HGB CONC 32 g/dL (32-36); MEAN CORPUSCULAR VOLUME 95 fL (80-99); MEAN PLATELET VOLUME 10.4 fL (9.0-12.2); PLATELET COUNT 222 10^3/uL (130-400); WHITE BLOOD COUNT 6.1 10^3/uL (4.3-11.0)
[2021-04-12 09:00] LABS: INR 0.9 (0.8-1.4); PROTHROMBIN TIME PATIENT 12.4 SEC (12.2-14.7)
[2021-04-12 09:01] LABS: BACTERIA,URINE NEGATIVE /HPF; SQUAMOUS EPITHELIAL CELL,UR RARE /HPF
[2021-04-12 09:07] LABS: ALBUMIN 4.4 GM/DL (3.2-4.5); BILIRUBIN,TOTAL 0.7 MG/DL (0.1-1.0); CALCIUM 9.9 MG/DL (8.5-10.1); CREATININE SERUM 0.76 MG/DL (0.60-1.30); POTASSIUM 3.9 MMOL/L (3.6-5.0); TOTAL PROTEIN 7.6 GM/DL (6.4-8.2)
[2021-04-12] MEDS ORDERED: EVOL140S2 SQ (09:08)
--- NOTE | 2021-04-12 09:15 | Diagnostic Imaging Report ---
INDICATION: Claudication. TIME OF EXAM: 8:49 AM Correlation is made with prior chest 04/02/2016. The heart size is normal. The pulmonary vascularity is unremarkable. The lungs are clear. No infiltrate, effusion or pneumothorax is detected. Impression: No acute cardiopulmonary process is detected. Dictated by: Dictated on workstation # [id number]
[2021-04-12] MEDS ORDERED: MIDAZOLAM 5 MG/5 ML (VERSED) VIAL ONE (10:37)
[2021-04-12] MEDS ORDERED: fentaNYL INJ 100 MCG/2 ML AMP ONE ×2 (10:37→15:35)
--- NOTE | 2021-04-12 10:39 | Conscious Sedation/ASA ---
Conscious Sedation Pre-Proced Time 10:39 ASA Score 3 For ASA 3 and 4: Consider anesthesia and medical clearance. Also, for patients with a history of failed moderate sedation consider anesthesia. Airway Lungs Heart ASA score ASA 1: a normal healthy patient ASA 2: a patient with a mild systemic disease (mid diabetes, controlled hypertension, obesity x ASA 3: a patient with a severe systemic disease that limits activity (angina, COPD, prior Myocardial infarction) ASA 4: a patient with an incapacitating disease that is a constant threat to life (CHF, renal failure) ASA 5: a moribund patient not expected to survive 24 hrs. (ruptured aneurysm) ASA 6: a declared brain- patient whose organs are being harvested. For emergent operations, add the letter E after the classification Mallampati Classification Grade 3 Sedation Plan Analgesia, Amnesia, Plan communicated to team members, Discussed options with patient/fam, Discussed risks with patient/fam The patient is an appropriate candidate to undergo the planned procedure, sedation, and anesthesia. The patient immediately re-assessed prior to indication. RAFFY CRAIG MD Apr 12, 2021 10:39
[2021-04-12] MEDS ORDERED: NITRO DRIP 25000 MCG/D5W 0 ML IV ONE (11:31)
[2021-04-12] MEDS ORDERED: HEParin 1000 UNIT/ML (10ML VIAL) FOR BOLUS ONE (11:31)
[2021-04-12] MEDS ORDERED: CLOPIDOGREL 300 MG (PLAVIX) TABLET PO ONE (11:54)
[2021-04-12] MEDS ORDERED: PATIENT MAY USE OWN MEDS, ALL PO SCH (12:00)
[2021-04-12] MEDS ORDERED: ACETAMINOPHEN 500 MG TAB (TYLENOL) PO PRN (12:00)
[2021-04-12] MEDS ORDERED: ACYCLOVIR 400 MG TABLET (ZOVIRAX) PO PRN (12:00)
--- NOTE | 2021-04-12 12:11 | Peripheral Report ---
Peripheral Report Physician (s)/Silk Spooler (s) Physician RAFFY CRAIG MD Pre-Procedure Diagnosis Pre-Procedure Diagnosis: Peripheral arterial disease Post-Procedure Note Procedure Start Date: Apr 12, 2021 Name of Procedure: Abdominal aortogram with bilateral lower extremity runoff Third order Additional imaging Balloon angioplasty to the left SFA Findings/Procedure Note PROCEDURE NOTE: 70-year-old lady with peripheral arterial disease, multiple interventions in the past, has been having bilateral lower extremities pain more significant on the right, underwent ALEX and TBI which was abnormal on the left leg. Decision was to proceed with bilateral angiogram and possible angioplasty and stent After explaining the procedure to the patient, all pros and cons were explained, all questions were answered. The patient signed the consent and then she was placed on the cardiac catheterization laboratory. The patient was placed on the cardiac catheterization laboratory. Groin was prepped SL fashion local anesthesia was used. Sheath placed in the right femoral artery, runoff to the right leg was done through the sheath, repeat angiogram with DSA imaging at the trifurcation was done. Using a rim catheter it was advanced to the left common iliac artery and runoff to the left leg was done then Storq wire was advanced to the tibioperoneal trunk and a straight catheter was placed distally and DSA imaging was done to the trifurcation then it was pulled back to the proximal SFA and angiogram was done. Then the catheter was flushed and advanced again to the tibioperoneal trunk and pressure was measured at multiple segment involving the tibial, popliteal, mid SFA, proximal SFA and common femoral artery, there was significant gradient within the stent in the proximal SFA subsequently decision was made to proceed with percutaneous intervention. Patient was given 6000 units of heparin, sheath was exchanged and used long 6 Chinese sheath Storq wire was advanced and parked distally then Westcliffe 35 6 x 100 advanced and 2 inflation were done within the stent, repeat angiogram showed excellent results, the straight catheter was exchanged again and advanced to the distal SFA and pressure was measured and pullback was done to the common femoral artery and there was no significant gradient noted. Sheath was exchanged again and short 6 Chinese sheath was used then a pigtail catheter was advanced to the abdominal aorta and abdominal aortogram was done. At the end of the procedure sheath was sutured in place FINDINGS: Hemodynamics: Baseline left leg, Tibial 101/56/74 Popliteal 105/57/77 Proximal SFA 114/58/80 Common femoral 135/55/84 Post intervention, left leg, SFA 119/60/85 Common femoral 125/60/86 Anatomy Abdominal aortogram: Moderate atherosclerotic disease, no dissection or aneurysm, normal origin of the renal arteries bilaterally, normal SMA and MOLLY. Bifurcation is normal. Right lower extremity: Multiple stents extending from the proximal SFA to the distal SFA, there is moderate to severe in-stent restenosis in the proximal SFA. Otherwise mild disease, below the trifurcation small vessel disease nonobstructive disease Left lower extremity: Multiple stents extending from the proximal SFA to the distal with moderate to severe in-stent restenosis in the proximal SFA successful balloon angioplasty using Westcliffe 6 x 100 with excellent results. Below the trifurcation there is three-vessel runoff with slow flow distally. CONCLUSIONS: 1. Moderate to severe in-stent restenosis in the left SFA successful balloon angioplasty using Westcliffe 6 x 100 with excellent results. Distally there is mild to moderate disease. Below the trifurcation there is no significant obstructive disease, small vessel disease. 2. Right SFA has moderate to severe in-stent restenosis proximally otherwise mild to moderate disease, below the trifurcation small vessel disease nonobstructive disease. DISCUSSION AND RECOMMENDATIONS: Continue to maximize medical therapy Anesthesia Type: Conscious Sedation Estimated blood loss (mL): 25 ml Contrast Amount: 61 ml Total Radiation Dose: 138 mGy Post-Procedure Diagnosis Post-operative diagnosis: Claudication Peripheral arterial disease Hypertension Hyperlipidemia RAFFY CRAIG MD Apr 12, 2021 12:11
[2021-04-12] MEDS: NS IV 1000 ML 1,000 ML IV SCH ×4 (12:22→22:04)
[2021-04-12] MEDS ORDERED: ATROPINE INJECTION 1 MG/10 ML SYR (ABBOTT) ONE (15:35)
[2021-04-12] MEDS ORDERED: ONDANSETRON 4 MG/2 ML (SDV) Z0FRAN ONE (15:50)
--- NOTE | 2021-04-12 18:23 | Tele-ICU Progress Note ---
Progress Note Video assessment done , Hemodynamically stable ) 70y/o F admitted s/p peripheral angio with plasty to L SFA Available charting reviewed NO TELE-ICU CONSULT REQUESTED CONTINUE TO MONITOR PER USUAL TELE-ICU PROTOCOL No need for Tele-ICU interventions Plans as delineated by bedside physicians / consultants Focused Exam Height, Weight, BMI Height: 5'2.00" Weight: 140lbs. 0.0oz. 63.189205jo; 26.92 BMI Method: SARWAT KHAN MD Apr 12, 2021 18:23
[2021-04-13] VITALS: BP 113/50
[2021-04-13 04:00] VITALS: BP 133/57
[2021-04-13] MEDS: NS IV 1000 ML 1,000 ML IV SCH (04:37)
[2021-04-13 05:07] LABS: HEMATOCRIT 38 % (35-52); HEMOGLOBIN 12.4 g/dL (11.5-16.0); MEAN CORPUSCULAR HEMOGLOBIN 30 pg (25-34); MEAN CORPUSCULAR HGB CONC 33 g/dL (32-36); MEAN CORPUSCULAR VOLUME 93 fL (80-99); MEAN PLATELET VOLUME 10.5 fL (9.0-12.2); PLATELET COUNT 171 10^3/uL (130-400); WHITE BLOOD COUNT 6.5 10^3/uL (4.3-11.0)
[2021-04-13 05:29] LABS: POTASSIUM 3.8 MMOL/L (3.6-5.0)
[2021-04-13 05:34] LABS: CREATININE SERUM 0.68 MG/DL (0.60-1.30)
[2021-04-13] MEDS ORDERED: MULTIVIT W/MINERALS TAB (THERAGRAN M) PO SCH (07:00)
[2021-04-13 08:00] VITALS: BP 134/58
[2021-04-13] MEDS ORDERED: CLOPIDOGREL 75 MG (PLAVIX) TABLET PO SCH (09:00)
[2021-04-13] MEDS ORDERED: lisINopril 20 MG (PRINIVIL) TABLET PO SCH (09:00)
--- NOTE | 2021-04-13 09:36 | Discharge Inst-Post CATH ---
Discharge Inst-CATH/EP Problems Reviewed?: Yes Post Cardiac Cath/EP D/C Inst Follow Up/Plan Appointment with Dr. Powell's office in 2 to 4 weeks <b>CARDIAC CATH/EP PROCEDURE DISCHARGE INSTRUCTIONS</b> ACTIVITY * Go Home directly and rest. * Limit activity of the leg (or wrist if it was used) for 7 days including aer obics, swimming, jogging, bicycling, etc. * Restrict stair-climbing for 7 days if possible, if not, climb up with your non-cath leg, then bring together on the same step. * Avoid lifting, pushing, pulling or excessive movement of the affected extremi ty for 7 days. * Customary sexual activity may be resumed after 2 days-use caution not to use a position that strains or causes pain to the affected extremity. * No driving for 24 hours. * NO SMOKING. * Avoid straining for bowel movements for 7 days. * Gentle walking on level ground is allowed. * Returning to work will depend on the type of procedure and the results. Your doctor will discuss this with you. CALL YOUR DOCTOR FOR ANY OF THE FOLLOWING: *If bleeding from the puncture site occurs- Apply gentle pressure to site with clean cloth and call your doctor or EMS. * If a knot or lump forms under the skin, increases in size, or causes pain. * If bruising appears to be worsening or moving further down your leg instead of disappearing. * Temperature above 101 F. CARE OF YOUR GROIN INCISION; * Bruising or purple discoloration of the skin near the puncture site is common. * You may shower only, no bathtub bathing for 5 days. Be careful to avoid slipping as your leg may feel stiff. * If a closure device was used on your femoral artery, please see the attached guide regarding care of the device and your leg. * Leave dressing on FOR 24 hours. CARE OF YOUR WRIST INCISION; * Bruising or purple discoloration of the skin near the puncture site is common. * You may shower. * DO NOT submerge wrist. * Leave dressing on FOR 24 hours. RAFFY POWELL MD Apr 13, 2021 09:36
--- NOTE | 2021-04-13 09:39 | Cardiology Progress Note ---
Subjective Date Seen by Provider: Apr 13, 2021 Time Seen by Provider: 09:37 Subjective/Events-last exam Patient was seen at bedside, laying down comfortably, mild discomfort at the procedure site. No hematoma was noted Review of Systems General: No Chills, No Night Sweats, No Fatigue, No Malaise, No Appetite, No Other HEENT: No Head Aches, No Visual Changes, No Eye Pain, No Ear Pain, No Dysphasia, No Sinus Congestion, No Post Nasal Drip, No Sore Throat, No Other Pulmonary: No Dyspnea, No Cough, No Pleuritic Chest Pain, No Other Cardiovascular: No: Chest Pain, Palpitations, Orthopnea, Paroxysmal Noc. Dyspnea, Edema, Lt Headedness, Other Objective-Cardiology Exam Last Set of Vital Signs Vital Signs 04/13/21 04/13/21 04/13/21 08:00 08:27 09:00 Temp 37.0 Pulse 70 Resp 14 B/P (MAP) 134/58 (83) Pulse Ox 97 O2 Delivery Room Air I&O Intake and Output 04/13/21 00:00 Intake Total 1650 ml Balance 1650 ml Intake Oral 650 ml IV Total 1000 ml # Voids 4 General: Alert, Oriented X3, Cooperative HEENT: Atraumatic, PERRLA Neck: Supple, No JVD, No Thyromegaly Lungs: Clear to Auscultation, Normal Air Movement Heart: Regular Rate, Normal S1, Normal S2, No Murmurs Abdomen: Normal Bowel Sounds, Soft, No Tenderness, No Hepatosplenomegaly, No Masses Extremities: No Clubbing, No Cyanosis, No Edema, Normal Pulses, No Tenderness/Swelling Skin: No Rashes, No Breakdown, No Significant Lesion Neuro: Normal Gait, Normal Speech, Strength at 5/5 X4 Ext, Normal Tone, Sensation Intact Psych/Mental Status: Mental Status NL, Mood NL Results Lab Laboratory Tests 04/13/21 04:40 A/P-Cardiology Admission Diagnosis Claudication Peripheral arterial disease Hypertension Hyperlipidemia Assessment/Plan Claudication, peripheral arterial disease, extensive disease, had multiple stents, status post balloon angioplasty for in-stent restenosis in the left SFA, procedure described below: 1. Moderate to severe in-stent restenosis in the left SFA successful balloon angioplasty using [place] 6 x 100 with excellent results. Distally there is mild to moderate disease. Below the trifurcation there is no significant obstructive disease, small vessel disease. 2. Right SFA has moderate to severe in-stent restenosis proximally otherwise mild to moderate disease, below the trifurcation small vessel disease nonobstructive disease. Hypertension, restarted home medication, monitor blood pressure Hyperlipidemia, maintained on Repatha. Allergy to aspirin, maintained on Plavix Arrange for follow-up in 2 to 4 weeks RAFFY CRAIG MD Apr 13, 2021 09:38
== END 2021-04-13 10:55 | disposition home or self-care (01) ==
LOC: CATH 08:18 → ICU 12:15 → CATH 04-13 10:55
PROVIDERS: ATTEND Internal Medicine Cardiovascular Disease
DX: T82.856A Stenosis of peripheral vascular stent, initial encounter (principal); I70.219 Atherosclerosis of native arteries of extremities with intermittent claudication, unspecified extremity; I10 Essential (primary) hypertension; I25.10 Atherosclerotic heart disease of native coronary artery without angina pectoris; E78.2 Mixed hyperlipidemia; I65.23 Occlusion and stenosis of bilateral carotid arteries; Z79.02 Long term (current) use of antithrombotics/antiplatelets; Z79.899 Other long term (current) drug therapy; Z83.3 Family history of diabetes mellitus
CPT/HCPCS: 36247; 36248; 37224; 71045; 75630; 80048; 80053; 80061; 81000; 85027 ×2; 85347; 85610; 85730; 87081; C1725; C1769; C1887 ×2; C1894 ×2; 36415